=== PATIENT | female | born 1955 | race Caucasian/White ===

== ENCOUNTER 2024-05-30 07:41 | Emergency (ER) | payer OTHER ==
[2024-05-30] MEDS ORDERED: Boostrix 0.5 ML (Tdap) VIAL (>/=7 yrs of age) ONE (08:38)
== END 2024-05-30 09:00 | disposition home or self-care (01) ==
LOC: NAV ERS 07:41
DX: S61.452A Open bite of left hand, initial encounter (principal); I10 Essential (primary) hypertension; Z79.899 Other long term (current) drug therapy; W55.01XA Bitten by cat, initial encounter
CPT/HCPCS: 90471; 90715